=== PATIENT | male | born 1970 | race Two or more races ===

== ENCOUNTER 2018-06-12 03:54 | Emergency (ER) | payer OTHER ==
[~2018-06-12] VITALS: Ht 177.8 cm; Wt 75.7 kg
[2018-06-12] MEDS ORDERED: KETO10TA2 PO (07:09)
[2018-06-12] MEDS ORDERED: TAMS0.4C PO (07:09)
== END 2018-06-12 07:19 | disposition home or self-care (01) ==
LOC: ER 03:54
DX: N20.0 Calculus of kidney (principal); N21.1 Calculus in urethra

== ENCOUNTER 2020-02-26 20:30 | Emergency (ER) | payer OTHER ==
[~2020-02-26] VITALS: Ht 177.8 cm; Wt 80.3 kg
[~2020-02-26 20:30] MED LIST: KETO10TA2 PO; TAMS0.4C PO
== END 2020-02-26 22:57 | disposition home or self-care (01) ==
LOC: ER 20:30
DX: S00.03XA Contusion of scalp, initial encounter (principal); S20.222A Contusion of left back wall of thorax, initial encounter; M54.2 Cervicalgia; W18.09XA Striking against other object with subsequent fall, initial encounter; Y93.89 Activity, other specified; Y92.480 Sidewalk as the place of occurrence of the external cause; Y99.8 Other external cause status